=== PATIENT | male | born 1955 | race Caucasian/White ===

== ENCOUNTER 2017-11-13 10:27 | Emergency (ER) | payer OTHER, MEDICARE ==
[~2017-11-13] VITALS: Wt 93.0 kg
[~2017-11-13 10:27] MED LIST: ADVAIR 250/501 EA INH; ASPIR 8181 MG; B-1100 MG PO; BIAXIN500 MG PO; CLARITIN10 MG PO; CLINDAMYCIN HC300 MG PO; DARVOCET N 1001 TAB PO; LISINOPRIL10 MG PO; PAXIL10 MG PO; PERCOCET 325 MG1 TA2 PO; PREDNICOT20 MG PO; PROAIR HFA0.09 MG/AC IH; SUBOXONE 8 MG-21 TA1; TRAMADOL HCL50 MG PO; VICODIN ES 7501 TAB PO; XANAX0.5 MG PO; ZANTAC150 MG PO; ZITHROMAX250 MG PO
[2017-11-13] MEDS ORDERED: METFORMIN750 MG PO (10:57)
[2017-11-13] MEDS ORDERED: PREDNISONE10 MG PO (11:32)
[2017-11-13] MEDS ORDERED: CHLORZOXAZONE500 M2 PO (11:32)
== END 2017-11-13 11:46 | disposition home or self-care (01) ==
LOC: ED 10:27
DX: G89.29 Other chronic pain (principal); M25.512 Pain in left shoulder; R03.0 Elevated blood-pressure reading, without diagnosis of hypertension; J44.9 Chronic obstructive pulmonary disease, unspecified; Z88.0 Allergy status to penicillin; Z79.899 Other long term (current) drug therapy; Z98.890 Other specified postprocedural states; Z88.6 Allergy status to analgesic agent

== ENCOUNTER 2017-11-21 11:34 | Emergency (ER) | payer OTHER, MEDICARE ==
[~2017-11-21] VITALS: Wt 99.8 kg
[~2017-11-21 11:34] MED LIST changes: +CHLORZOXAZONE500 M2 PO; +METFORMIN750 MG PO; +PREDNISONE10 MG PO
== END 2017-11-21 12:18 | disposition home or self-care (01) ==
LOC: ED 11:34
DX: M54.12 Radiculopathy, cervical region (principal); F17.200 Nicotine dependence, unspecified, uncomplicated; M48.02 Spinal stenosis, cervical region; Z79.899 Other long term (current) drug therapy; Z79.82 Long term (current) use of aspirin; Z88.0 Allergy status to penicillin; Z88.6 Allergy status to analgesic agent

== ENCOUNTER 2017-11-24 03:51 | Emergency (ER) | payer OTHER, MEDICARE ==
[~2017-11-24] VITALS: Ht 172.7 cm; Wt 93.0 kg
[2017-11-24] MEDS ORDERED: TESTOSTERONE60 GM TD (04:30)
[2017-11-24] MEDS ORDERED: Motrin,Rufen800 MG PO (04:31)
[2017-11-24] MEDS ORDERED: PROVENTIL HFA6.7 GM INH (04:34)
== END 2017-11-24 05:00 | disposition home or self-care (01) ==
LOC: ED 03:51
DX: M25.512 Pain in left shoulder (principal); G89.29 Other chronic pain; M54.9 Dorsalgia, unspecified; J44.9 Chronic obstructive pulmonary disease, unspecified; Z79.899 Other long term (current) drug therapy; Z88.0 Allergy status to penicillin; Z88.6 Allergy status to analgesic agent

== ENCOUNTER 2018-11-09 18:37 | Inpatient (IN) | payer MEDICARE ==
[~2018-11-09] VITALS: Ht 172.7 cm; Wt 99.5 kg
--- NOTE | ~2018-11-09 | CON ---
[place], [place] REPORT OF CONSULTATION NAME: ELIZABET PACHECO UNIT #: [id number] ROOM: 526 DOCTOR: MONALISA JACOBS MD BIRTHDATE: [birth year] DOS: 11/10/2018 CARDIOLOGY CONSULTATION NOTE REASON FOR CONSULTATION: Chest pain. This is an addendum to the notes done by Dr. Deric Perry. I personally examined and assessed the patient today. His medications, allergies and, EKGS, rhythm strips, and history reviewed. The case was discussed with Dr. Deric Perry. Dr. Perry's examination, assessment and recommendations reflect my work. The patient was admitted for alcohol intoxication and he stated that he had intermittent chest pains and shortness of breath. He is rather vague about symptoms, but describes as heaviness in the substernal area, which gets worse with exertion and this pain has no radiation. He did have some associated shortness of breath and pain lasts for a few minutes to a few hours and relieves on its own. PHYSICAL EXAMINATION: VITAL SIGNS: Reviewed FOCUSED CARDIAC EXAM SHOWED: NECK: Supple, no distended neck veins, no carotid bruit. HEART: Regular rhythm, no S3, no palpable thrills. ABDOMEN: Nontender. Bowel sounds normal. LUNGS: Clear to auscultation bilaterally. EXTREMITIES: Showed no edema. Distal pulses palpable. IMPRESSION: 1. Chest pain, atypical, myocardial infarction ruled out. 2. Tobacco and alcohol use. 3. History of hypertension. 4. History of diabetes type 2. RECOMMENDATIONS: 1. Lexiscan stress test was scheduled for today. 2. A 2D echo was done and we will review the 2D echo. 3. Risk factor modification for diet, exercise, weight loss and also to quit smoking and drinking was discussed. 3. No family at bedside at the time of examination. 4. The patient can be discharged home from the cardiac standpoint if the stress test, echo are unremarkable today. Again, this note is an addendum to the notes done by Dr. Deric Perry. [place], [place] REPORT OF CONSULTATION NAME: ELIZABET PACHECO UNIT #: [id number] ROOM: 526 DOCTOR: MONALISA JACOBS MD BIRTHDATE: [birth year] MONALISA JACOBS MD CM:CONSTR:REPORT OF CONSULTATION 1158 11/11/18 0015 interface
--- NOTE | ~2018-11-09 | EKG ---
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
--- NOTE | ~2018-11-09 | ST ---
[place], [place] EXERCISE STRESS TEST REPORT [id number] UN[facility] #: [id number] ROOM: 526 DOCTOR: REYNALDO DIEGO,MONALISA BIRTHDATE: [birth year] DOS: 11/10/2018 LEXISCAN STRESS TEST REASON FOR TEST: Chest pain. PHYSICAL EXAMINATION NECK: Supple. LUNGS: Clear anteriorly. HEART: Regular rhythm. PROTOCOL: Lexiscan protocol. Maximum heart rate 124. Peak blood pressure 144/62. SYMPTOMS: The patient had chest pain. EKG: Resting EKG showed sinus rhythm with occasional PVCs. Stress EKG showed occasional PVCs, no ischemia. CONCLUSION: Clinically, the patient is chest pain free. EKG nonischemic. Occasional PVCs at rest and during stress. POST-STRESS COMPLICATIONS: None. The patient received a total of 0.4 mg Lexiscan. MONALISA JACOBS MD CM:STRESS:EXERCISE STRESS TEST REPORT [id number] [id number] MONALISA JACOBS MD
--- NOTE | ~2018-11-09 | EKG ---
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
--- NOTE | ~2018-11-09 | EKG ---
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
[~2018-11-09 18:37] MED LIST changes: +Motrin,Rufen800 MG PO; +PROVENTIL HFA6.7 GM INH; +TESTOSTERONE60 GM TD
[2018-11-09 18:48] VITALS: BP 103/45
[2018-11-09 19:18] VITALS: BP 116/57
[2018-11-09 19:37] LABS: BASO # 0.1 10*3/uL (0.0-0.1); BASO % 0.6 % (0.0-1.0); EOS # 0.2 10*3/uL (0.0-0.4); EOS % 1.9 % (1.0-4.0); HEMATOCRIT 47.1 % (42.0-52.0); HEMOGLOBIN 15.2 g/dl (14.0-18.0); LYMPH # 2.7 10*3/uL (1.3-4.4); MEAN CORPUSCULAR HGB 29.7 pg (27.0-31.0); MEAN CORPUSCULAR HGB CONC 32.3 g/dl (33.0-37.0); MEAN PLATELET VOLUME 9.5 fl (9.6-12.3); MONO # 0.6 10*3/uL (0.1-1.0); MONO % 5.5 % (3.0-9.0); NEUT # 7.4 10*3/uL (2.3-7.9); PLATELET COUNT AUTOMATED 313 10*3/uL (130-400); RED BLOOD COUNT 5.12 10*6/uL (4.50-5.90); RED CELL DISTRI WIDTH 13.6 % (0-14.5); WHITE BLOOD COUNT 11.2 10*3/uL (4.8-10.8)
--- NOTE | 2018-11-09 19:46 | NUR ---
CRITICAL LAB LACTIC ACID 3.5. DR GIVENS NOTIFIED AND THIS RN NOTIFIED
[2018-11-09 19:48] LABS: ACT PARTIAL THROMBO TIME 25.6 SECONDS (20.0-32.1)
[2018-11-09 19:54] LABS: ALBUMIN 4.1 gm/dl (3.1-4.5); ALKALINE PHOSPHATASE 67 U/L (45-117); BUN 14 mg/dl (7-24); CHLORIDE 104 mmol/L (98-107); CREATININE 1.22 mg/dL (0.70-1.30); LIPASE 430 U/L (73-393); POTASSIUM 4.3 mmol/L (3.5-5.1); SGOT/AST 47 IU/L (3-35); SGPT/ALT 68 U/L (12-78); SODIUM 139 mmol/L (136-145); TOTAL PROTEIN 7.6 gm/dL (6.4-8.2)
[2018-11-09 19:55] LABS: TROPONIN I < 0.015 ng/ml (<0.045)
[2018-11-09 20:21] LABS: ACETAMINOPHEN (TYLENOL) < 5.0 ug/ml (10-30)
--- NOTE | 2018-11-09 20:24 | NUR ---
PATIENT ACCIDENTLY PULLED IV OUT THAT WAS PLACED BY EMS. IV WAS INTACT AFTER BEING PULLED OUT. BLEEDING CONTROLLED.
[2018-11-09 20:25] VITALS: BP 114/67
[2018-11-09 20:58] LABS: BILIRUBIN NEGATIVE (NEGATIVE); BLOOD NEGATIVE (NEGATIVE); CLARITY CLEAR (CLEAR); COLOR YELLOW (YELLOW); GLUCOSE NEGATIVE (NEGATIVE); KETONE TRACE (NEGATIVE); LEUKO ESTERASE NEGATIVE (NEGATIVE); NITRITE NEGATIVE (NEGATIVE); PH 5.5 (5.0-9.0); SPECIFIC GRAVITY <= 1.005 (1.005-1.030); UROBILINOGEN 0.2 E.U./dl (0.2-1.0)
[2018-11-09 21:07] LABS: URINE AMPHETAMINES < 1000 (1000ng/ml); URINE BARBITURATES < 200 (200ng/ml); URINE BENZODIAZEPINES < 200 (200ng/ml); URINE CANNABINOIDS (THC) > 50 (50ng/ml); URINE COCAINE < 300 (300ng/ml); URINE METHADONE < 300 (300ng/ml); URINE OPIATES < 300 (300ng/ml)
[2018-11-09 21:09] LABS: URINE PHENCYCLIDINE < 25 (25ng/ml)
[2018-11-09 21:12] LABS: BACTERIA 1+; WBC 0-2 wbc/hpf (0-5)
[2018-11-09 22:49] VITALS: BP 98/74
--- NOTE | 2018-11-09 22:49 | NUR ---
A 63, admitted to 5E, under the services of KAYLEIGH Bhakta DO with a diagnosis of ASPIRATION PNA, ETOH INTOXICATION. Chief complaint is ETOH ABUSE. Patient arrived via BED from ER. Monitor applied. Initial assessment completed. Vital signs taken and recorded. KAYLEIGH BHAKTA DO notified of admission to the unit. Orders received. See assessment for past medical history, medications and allergies. Patient oriented to unit. Clothing/patient valuable form completed. ADELAIDA MARIE
[2018-11-09] MEDS ORDERED: NORVASC10 MG PO (23:09)
[2018-11-10] VITALS: BP 95/77
--- NOTE | 2018-11-10 00:36 | NUR ---
DR LAI NOTIFIED OF ELEVATED LACTIC ACID OF 3.3 NO FURTHER ORDERS AT THIS TIME.
--- NOTE | 2018-11-10 01:35 | NUR ---
DR. LAI INFORMED OF LACTIC 3.3. INSTRUCTED TO LET BANANA BAG FINISH RUNNING THEN HANG FLUIDS.
[2018-11-10 06:35] LABS: BASO % 0.3 % (0.0-1.0); EOS % 0.1 % (1.0-4.0); HEMATOCRIT 46.9 % (42.0-52.0); HEMOGLOBIN 15.2 g/dl (14.0-18.0); LYMPH # 1.3 10*3/uL (1.3-4.4); LYMPH % 13.1 % (27.0-41.0); MEAN CELL VOLUME 91.6 fl (80.0-94.0); MEAN CORPUSCULAR HGB 29.7 pg (27.0-31.0); MEAN CORPUSCULAR HGB CONC 32.4 g/dl (33.0-37.0); MEAN PLATELET VOLUME 9.8 fl (9.6-12.3); MONO # 0.1 10*3/uL (0.1-1.0); NEUT % 83.9 % (47.0-73.0); PLATELET COUNT AUTOMATED 337 10*3/uL (130-400); RED BLOOD COUNT 5.12 10*6/uL (4.50-5.90); RED CELL DISTRI WIDTH 13.6 % (0-14.5); WHITE BLOOD COUNT 9.5 10*3/uL (4.8-10.8)
[2018-11-10 06:49] LABS: BUN 15 mg/dl (7-24); CHLORIDE 104 mmol/L (98-107); CHOLESTEROL 144 mg/dL (<200); CREATININE 0.97 mg/dL (0.70-1.30); PHOSPHOROUS 2.4 mg/dL (2.5-4.9); SODIUM 139 mmol/L (136-145); TRIGLYCERIDES 164 mg/dl (<150); VLDL CHOLESTEROL 33 mg/dL (6-40)
[2018-11-10 06:57] LABS: FREE T4 1.04 ng/dl (0.76-1.46); HDL CHOLESTEROL 35 mg/dl (40-60); LDL CHOLESTEROL 76 mg/dL (9-159)
[2018-11-10 08:05] VITALS: BP 160/82
--- NOTE | 2018-11-10 08:32 | NUR ---
Message left with Mildred regarding consult for C/P and SOB W/exertion.
[2018-11-10 08:54] LABS: VITAMIN D, 25-HYDROXY 36.2 ng/mL (30-100)
[2018-11-10] MEDS ORDERED: ADULTS 50 PLUS1 EACH PO (10:25)
--- NOTE | 2018-11-10 10:45 | NUR ---
INFORMED CONSENT OBTAINED FOR A LEXISCAN STRESS TEST WITH DR. JACOBS. RESTING EKG SINUS TACHYCARDIA WITH A HT RT OF 102, BP OF 140/72. LUNGS CLEAR BILATERAL, WITH A SPO2 OF 95% VIA RA. COMPLETED ONE MINUTE OF A LEXISCAN PROTOCOL RECEIVING LEXISCAN 0.4 MG OVER 10 SECONDS. VOICED FEELINGS OF "WARMTH AND NAUSEA" THAT WAS RELIEVED IN RECOVERY. HAD A PEAK HT RT OF 111, WITH BP OF 142/64 LAST RECOVERY HT RT OF 117, WITH A BP OF 144/62. AWAITING NUCLEAR IMAGING IN STABLE CONDITION.
--- NOTE | 2018-11-10 11:18 | NUR ---
Notified Dr. Pitts that patients med rec is complete.
--- NOTE | 2018-11-10 12:00 | NUR ---
Stand Up Forklift Operator in to talk to patient. Patient states lives at HOME with . There are FEW steps in the home. Physician: TAHIRA [facility]acy: [facility] Home health services: NONE Patient's level of ADLs: INDEPENDENT Patient has working utilities: YES DME: NEBULIZER Follow-up physician's appointment after d/c: WILL BE MADE BY HOSPITALIST NURSE DIRECTOR ON DISCHARGE Does patient want to access PORTAL?: NO Discharge plan PT LIVES AT HOME WITH HIS AND IS INDEPENDENT IN HIS CARE. DENIES ANY NEEDS ON DISCHARGE. ONLY CONCERN IS RECENTLY LOST JOB AND THEY LIVE ON INCOME AND ONLY HAS MEDICARE. MESSAGE LEFT FOR JANN FROM MED ASSIST TO GO AND TALK WITH THEM. WILL CONTINUE TO FOLLOW. WILL TAKE HIM HOME. TEOFILO TODD
[2018-11-10 16:00] VITALS: BP 168/76
[2018-11-10 20:00] VITALS: BP 180/60
[2018-11-11] VITALS: BP 145/77
[2018-11-11 08:00] VITALS: BP 156/60
[2018-11-11] MEDS ORDERED: LEVAQUIN750 M1 PO (11:11)
[2018-11-11] MEDS ORDERED: LEVOFLOXACIN500 MG PO (11:13)
[2018-11-11] MEDS ORDERED: PREDNISONE10 MG PO (11:13)
[2018-11-11] MEDS ORDERED: MUCINEX ER600 MG PO (11:14)
--- NOTE | 2018-11-11 11:51 | NUR ---
PT CONTINUES TO DENY HOME NEEDS. WILL CONTINUE TO FOLLOW.
--- NOTE | 2018-11-11 12:20 | NUR ---
Discharge instructions reviewed with patient/family. Patient receptive and verbalizes understanding. Follow-up care arranged. Written instructions given to patient/family. Patient was educated on new medications and follow up visits with pcp. Patient ambulated from unit with all personal belongings accounted for. DIANNE BHAKTA
== END 2018-11-11 12:48 | disposition home or self-care (01) | DRG 177 ==
LOC: ED 18:37 → EDHOLD 20:36 → 5E 20:36 → ICCU 21:03 → 5E 22:07
PROVIDERS: Emergency Medicine Emergency Medical Services; Student in an Organized Health Care Education/Training Program; ADMIT Internal Medicine
PROC: 3E073KZ Introduction of Other Diagnostic Substance into Coronary Artery, Percutaneous Approach (ICD-10-PCS; principal; 2018-11-10)
PROC: 4A02XM4 Measurement of Cardiac Total Activity, External Approach (ICD-10-PCS; principal; 2018-11-10)
DX: J69.0 Pneumonitis due to inhalation of food and vomit (principal); G93.41 Metabolic encephalopathy; J44.1 Chronic obstructive pulmonary disease with (acute) exacerbation; E87.2 Acidosis; F10.929 Alcohol use, unspecified with intoxication, unspecified; R07.89 Other chest pain; F17.210 Nicotine dependence, cigarettes, uncomplicated; K21.9 Gastro-esophageal reflux disease without esophagitis; I10 Essential (primary) hypertension; F41.1 Generalized anxiety disorder; E83.39 Other disorders of phosphorus metabolism; M25.512 Pain in left shoulder; R09.02 Hypoxemia; G89.29 Other chronic pain; E11.65 Type 2 diabetes mellitus with hyperglycemia; R74.0 Nonspecific elevation of levels of transaminase and lactic acid dehydrogenase [LDH]; R74.8 Abnormal levels of other serum enzymes; Z71.6 Tobacco abuse counseling; Z88.0 Allergy status to penicillin; Z88.6 Allergy status to analgesic agent; Z87.01 Personal history of pneumonia (recurrent); Z90.49 Acquired absence of other specified parts of digestive tract; Z82.49 Family history of ischemic heart disease and other diseases of the circulatory system; Z82.3 Family history of stroke; Z82.0 Family history of epilepsy and other diseases of the nervous system; Z79.899 Other long term (current) drug therapy

== ENCOUNTER → 2023-08-03 | Outpatient (CLI) | payer BC, MEDICARE ==
[~2023-08-03] MED LIST changes: +ADULTS 50 PLUS1 EACH PO; -ASPIR 8181 MG; +ASPIRIN ADULT L81 M2 PO; +CO Q10200 MG PO; +DOXYCYCLINE HY100 M3 PO; +GLUCOTROL XL10 MG PO; +GLUCOTROL10 M1 PO; +HYDROCHLOROTHIA50 M1 PO; +JARDIANCE10 MG PO; +LEVAQUIN750 M1 PO; +LEVOFLOXACIN500 MG PO; +LEVOTHYROXINE175 MC1 PO; +METFORMIN HYD1000 MG PO; -METFORMIN750 MG PO; +METOPROLOL SUCC50 M1 PO; +MUCINEX ER600 MG PO; +NORVASC10 MG PO; +OXYGEN NAS; +PLAVIX75 M1 PO; +PRILOSEC20 M1 PO; +PROAIR RESPICL90 MCG INH; +ROSUVASTATIN CA40 MG PO; +SUBOXONE 12 MG1 EACH SL; +TOPROL XL50 M1 PO; +VENTOLIN 02.5 MG/3 M INH; +ZESTRIL40 MG PO
== END | disposition home or self-care (01) ==
LOC: RAD 11:37
PROVIDERS: ATTEND Nurse Practitioner Family
DX: J44.9 Chronic obstructive pulmonary disease, unspecified (principal); J18.9 Pneumonia, unspecified organism

== ENCOUNTER → 2023-11-03 | Outpatient (CLI) | payer BC, MEDICARE ==
[2023-11-03 08:46] LABS: ALKALINE PHOSPHATASE 76 U/L (46-116); CHOLESTEROL 82 mg/dL (<200); FREE T4 1.32 ng/dl (0.89-1.76); LDL CHOLESTEROL 24 mg/dL (9-159); SGPT/ALT 42 U/L (5-49); TOTAL PROTEIN 7.3 gm/dL (6.0-8.0); TRIGLYCERIDES 144 mg/dl (<150)
[2023-11-03 09:24] LABS: VITAMIN D, 25-HYDROXY 35.9 ng/mL (30-100)
== END | disposition home or self-care (01) ==
LOC: LAB 07:55
PROVIDERS: ATTEND Internal Medicine
DX: C73 Malignant neoplasm of thyroid gland (principal); R79.89 Other specified abnormal findings of blood chemistry; E55.9 Vitamin D deficiency, unspecified; E61.1 Iron deficiency; E11.9 Type 2 diabetes mellitus without complications

== ENCOUNTER → 2024-03-27 | Outpatient (CLI) | payer BC, MEDICARE ==
[2024-03-27 09:41] LABS: BILIRUBIN Negative (Negative); BLOOD Negative (Negative); CLARITY Clear (Clear); COLOR Yellow (Yellow); GLUCOSE Negative (Negative); KETONE Negative (Negative); LEUKO ESTERASE Negative (Negative); NITRITE Negative (Negative); PH 7.5 (4.5-8.0)
[2024-03-27 09:50] LABS: BACTERIA TRACE; EPITHELIAL CELLS 0-2; RBC 0-2 rbc/hpf (0-2); WBC 0-2 wbc/hpf (0-5)
[2024-03-27 10:13] LABS: ALKALINE PHOSPHATASE 62 U/L (46-116); BUN 14 mg/dl (9-23); CHLORIDE 102 mmol/L (98-107); CHOLESTEROL 63 mg/dL (<200); FREE T4 1.77 ng/dl (0.89-1.76); LDL CHOLESTEROL 21 mg/dL (9-159); POTASSIUM 4.1 mmol/L (3.4-5.1); SGPT/ALT 29 U/L (5-49); TRIGLYCERIDES 70 mg/dl (<150); VITAMIN D, 25-HYDROXY 58.9 ng/mL (30-100)
[2024-03-28 08:11] LABS: THYROID PEROXIDASE (TPO) AB <9 IU/mL (0-34)
== END | disposition home or self-care (01) ==
LOC: LAB 09:14
PROVIDERS: ATTEND Internal Medicine
DX: E11.9 Type 2 diabetes mellitus without complications (principal); E89.0 Postprocedural hypothyroidism; E55.9 Vitamin D deficiency, unspecified; E78.5 Hyperlipidemia, unspecified; E61.1 Iron deficiency; R79.89 Other specified abnormal findings of blood chemistry; C73 Malignant neoplasm of thyroid gland

== ENCOUNTER → 2024-08-22 | Outpatient (CLI) | payer BC, MEDICARE ==
[2024-08-22 07:54] LABS: BILIRUBIN Negative (Negative); BLOOD Negative (Negative); CLARITY Clear (Clear); COLOR Dark Yellow (Yellow); GLUCOSE Negative (Negative); KETONE Negative (Negative); LEUKO ESTERASE Trace (Negative); NITRITE Negative (Negative); SPECIFIC GRAVITY 1.015 (1.001-1.030)
[2024-08-22 08:16] LABS: ALKALINE PHOSPHATASE 62 U/L (46-116); BUN 12 mg/dl (9-23); CHLORIDE 100 mmol/L (98-107); CHOLESTEROL 69 mg/dL (<200); FREE T4 1.83 ng/dl (0.89-1.76); LDL CHOLESTEROL 28 mg/dL (9-159); SGPT/ALT 28 U/L (5-49); TOTAL PROTEIN 7.2 gm/dL (6.0-8.0); TRIGLYCERIDES 60 mg/dl (<150)
[2024-08-22 08:28] LABS: PH 8.5 (4.5-8.0)
[2024-08-22 08:43] LABS: RBC 0-2 rbc/hpf (0-2)
[2024-08-23 15:06] LABS: THYROGLOBULIN ANTIBODY <1.0 IU/mL (0.0-0.9)
== END | disposition home or self-care (01) ==
LOC: LAB 07:25
PROVIDERS: ATTEND Internal Medicine
DX: C73 Malignant neoplasm of thyroid gland (principal); E55.9 Vitamin D deficiency, unspecified; E61.1 Iron deficiency; E89.0 Postprocedural hypothyroidism; E78.5 Hyperlipidemia, unspecified; R79.89 Other specified abnormal findings of blood chemistry; N40.0 Benign prostatic hyperplasia without lower urinary tract symptoms

== ENCOUNTER 2024-12-25 19:41 | Inpatient (IN) | payer OTHER ==
[~2024-12-25] VITALS: Ht 170.2 cm; Wt 83.5 kg
[~2024-12-25 19:41] MED LIST changes: +BUPRENORPHINE HY8 MG SL; +OZEMPIC0.25 MG/03 SQ
[2024-12-25 19:50] VITALS: BP 101/59
[2024-12-25] MEDS ORDERED: MORPHINE Sulfate 5 MG IV PRN (20:05)
[2024-12-25] MEDS ORDERED: diazePAM 10 MG/2 ML SYR IV PRN (20:10)
[2024-12-25] MEDS ORDERED: diazePAM 10 MG/2 ML SYR IV ONE (20:10)
[2024-12-25] MEDS ORDERED: SODIUM CHLORIDE 0.9% 1,000 ML IV SCH (21:15)
[2024-12-25] MEDS ORDERED: SODIUM CHLORIDE 0.9% 1,000 ML IV ONE (21:41)
[2024-12-26] MEDS ORDERED: ATROPINE SULFATE 1% 2 ML BOTTLE SL PRN
[2024-12-26] MEDS ORDERED: FOAM BANDAGE 1 EACH BANDAGE T ONE (00:15)
[2024-12-26] MEDS ORDERED: diazePAM 10 MG/2 ML SYR IV PRN (01:10)
== END 2024-12-26 21:19 | DRG 189 ==
LOC: ICCU 19:41 → 4E 19:41
PROVIDERS: ADMIT Student in an Organized Health Care Education/Training Program; ATTEND Student in an Organized Health Care Education/Training Program
DX: J96.21 Acute and chronic respiratory failure with hypoxia (principal); J91.0 Malignant pleural effusion; C79.9 Secondary malignant neoplasm of unspecified site; I50.32 Chronic diastolic (congestive) heart failure; J44.89 Other specified chronic obstructive pulmonary disease; E11.9 Type 2 diabetes mellitus without complications; I11.0 Hypertensive heart disease with heart failure; F41.1 Generalized anxiety disorder; K21.9 Gastro-esophageal reflux disease without esophagitis; E03.9 Hypothyroidism, unspecified; Z51.5 Encounter for palliative care; Z71.6 Tobacco abuse counseling; Z85.89 Personal history of malignant neoplasm of other organs and systems